=== PATIENT | female | born 1980 | race African-American/Black ===

== ENCOUNTER 2017-07-29 18:51 | Emergency (ER) | payer OTHER ==
[~2017-07-29] VITALS: Ht 154.9 cm; Wt 80.7 kg
[~2017-07-29 18:51] MED LIST: CIPR500T4 PO; FERR325E14 PO; IBUP-974 PO; METR500T1 PO
[2017-07-29 19:30] VITALS: BP 144/93
--- NOTE | 2017-07-29 23:08 | NUR ---
PATIENT TO ER BED 3
--- NOTE | 2017-07-29 23:09 | NUR ---
PATIENT PRESENTS TO ED WITH DARK YELLOW URINE. PT DENIES N/V/D; SKIN IS PINK/WARM/DRY; AAOX4 WITH EVEN AND STEADY GAIT; LUNGS CLEAR BL; HR EVEN AND REGULAR; PT DENIES ANY FEVER, CP, SOB, OR COUGH AT THIS TIME; PATIENT STATES PAIN OF 0/10 AT THIS TIME; VSS; PATIENT POSITIONED FOR COMFORT; HOB ELEVATED; BEDRAILS UP X1; BED DOWN. ER MD MADE AWARE OF PT STATUS.
[2017-07-29 23:52] LABS: APPEARANCE,URINE SL CLOUDY (CLEAR); BILIRUBIN,URINE NEGATIVE (NEGATIVE); BLOOD, URINE NEGATIVE (NEGATIVE); COLOR,URINE YELLOW (YELLOW); LEUKOCYTE ESTERASE ,URINE NEGATIVE (NEGATIVE); NITRITE, URINE NEGATIVE (NEGATIVE); PH,URINE 5.5 (5.0-9.0); UGLUCOSE NEGATIVE (NEGATIVE)
[2017-07-30 00:22] VITALS: BP 144/93
--- NOTE | 2017-07-30 00:22 | NUR ---
Patient discharged with v/s stable. Written and verbal after care instructions given and explained. Patient verbalized understanding. Ambulatory with steady gait. All questions addressed prior to discharge. Advised to follow up with PMD.
[2017-07-31 08:30] LABS: HEPATITIS A ANTIBODY IGM Negative (Negative); HEPATITIS B CORE AB TOTAL Negative (Negative); HEPATITIS B SURFACE ANTIBODY Non Reactive (.); HEPATITIS B SURFACE ANTIGEN Negative (Negative)
[2017-08-01 06:17] LABS: CHLAMYDIA TRACHOMATIS AMP DNA Negative (Negative)
== END 2017-07-30 00:22 | disposition home or self-care (01) ==
LOC: MED 18:51
DX: Z11.3 Encounter for screening for infections with a predominantly sexual mode of transmission (principal); I10 Essential (primary) hypertension
CPT/HCPCS: 36415; 81003; 81025; 86592; 86702; 86704; 86706; 86708; 86709; 86803; 87340; 87491; 99284

== ENCOUNTER 2017-08-09 09:40 | Emergency (ER) | payer OTHER ==
[~2017-08-09] VITALS: Ht 154.9 cm; Wt 90.7 kg
[2017-08-09 09:50] VITALS: BP 146/95
== END 2017-08-09 10:24 | disposition home or self-care (01) ==
LOC: MED 09:40
DX: Z00.00 Encounter for general adult medical examination without abnormal findings (principal); I10 Essential (primary) hypertension; Z79.899 Other long term (current) drug therapy
CPT/HCPCS: 99281